=== PATIENT | female | born 1985 | race African-American/Black ===

== ENCOUNTER 2017-02-03 12:44 | Emergency (ER) | payer MEDICAID ==
[~2017-02-03] VITALS: Ht 162.6 cm; Wt 75.0 kg
[2017-02-03] MEDS ORDERED: LIDOCAINE 5% PATCH TOP SCH (18:15)
[2017-02-03 18:18] VITALS: BP 122/81
== END 2017-02-03 18:26 | disposition home or self-care (01) ==
LOC: ER 14:48
DX: M25.511 Pain in right shoulder (principal)
CPT/HCPCS: 99283